=== PATIENT | male | born 1970 ===

== ENCOUNTER 2017-01-23 02:45 | Observation (INO) | payer MEDICAID ==
[2017-01-23 02:46] VITALS: BMI 25.0
[2017-01-23] MEDS ORDERED: Sodium Chloride 0.9% 1,000 ML IV STA (03:05)
--- NOTE | 2017-01-23 03:13 | ED PDOC ---
HPI: Abdomen Time Seen by Provider: 01/23/17 02:55 Chief Complaint (Nursing): Abdominal Pain Chief Complaint (Provider): Abdominal pain History Per: Patient History/Exam Limitations: no limitations Onset/Duration Of Symptoms: Days (few days), Worse Since (today) Current Symptoms Are (Timing): Still Present Associated Symptoms: Nausea, Vomiting, Constipation. denies: Fever, Chills, Chest Pain, Urinary Symptoms Additional Complaint(s): Jagdish Guardado is a 46 year old male, with no past medical history, who presents to the emergency department complaining of right sided abdominal pain and right flank pain associated with constipation and one episode of nausea and vomit onset for a few days. Patient reports pain worsen tonight which prompted his visit to the ED. Patient denies any fever, chills, chest pain, shortness of breath or urinary symptoms. No further medical complaints. PMD: None provided. Past Medical History Reviewed: Historical Data, Nursing Documentation, Vital Signs Vital Signs: Last Vital Signs Temp 98.0 F 01/23/17 02:52 Pulse 80 01/23/17 02:52 Resp 17 01/23/17 02:52 BP 127/76 01/23/17 02:52 Pulse Ox 100 01/23/17 03:21 - Medical History PMH: Depression, Seizures (Withdrawal) Denies: Diabetes, Hepatitis, HIV, HTN, Chronic Kidney Disease, Sexually Transmitted Disease - Family History Family History: States: Unknown Family Hx - Immunization History Hx Tetanus Toxoid Vaccination: No Hx Influenza Vaccination: No Hx Pneumococcal Vaccination: No - Home Medications Home Medications: Ambulatory Orders Medication Instructions Recorded Amoxicillin/Clavulanate Pota 1 tab PO BID #0 tab 01/30/15 [Augmentin 875 mg-125 mg] Nicotine 21 mg/24 hr [Nicoderm Cq] 1 patch TD DAILY #0 patch 01/30/15 Omeprazole [Prilosec] 40 mg PO DAILY #0 ecc 01/30/15 Prednisone 20 mg PO DAILY #0 tab 01/30/15 Thiamine [B-1] 100 mg PO DAILY #0 tab 01/30/15 Amoxicillin/Clavulanate [Augmentin 1 tab PO Q12 #0 tab 06/09/15 875 MG-125 MG Tab] Citalopram [celeXA] 10 mg PO DAILY #30 tab 06/09/15 Folic Acid 1 mg PO DAILY #0 tab 02/12/16 Thiamine [Vitamin B1 Tab] 100 mg PO DAILY #0 tab 06/09/15 - Allergies Allergies/Adverse Reactions: Allergies Allergy/AdvReac Type Severity Reaction Status Date / Time No Known Allergies Allergy Unverified 02/12/13 12:22 Review of Systems ROS Statement: Except As Marked, All Systems Reviewed And Found Negative Constitutional: Negative for: Fever, Chills Cardiovascular: Negative for: Chest Pain Respiratory: Negative for: Shortness of Breath Gastrointestinal: Positive for: Nausea, Vomiting, Abdominal Pain (right sided abdominal pain and right sided flank pain. ), Constipation Genitourinary Male: Negative for: Dysuria, Frequency Physical Exam - Reviewed Nursing Documentation Reviewed: Yes Vital Signs Reviewed: Yes - Physical Exam Appears: Positive for: Well, Non-toxic Head Exam: Positive for: ATRAUMATIC, NORMAL INSPECTION, NORMOCEPHALIC Skin: Positive for: Normal Color, Warm, Dry Eye Exam: Positive for: EOMI, Normal appearance, PERRL Neck: Positive for: Normal, Painless ROM, Supple Cardiovascular/Chest: Positive for: Regular Rate, Rhythm. Negative for: Murmur Respiratory: Positive for: Normal Breath Sounds. Negative for: Respiratory Distress Gastrointestinal/Abdominal: Positive for: Bowel Sounds, Soft, Tenderness (right mid quadrant abdominal tenderness & right flank tenderness). Negative for: Normal Exam Back: Positive for: Normal Inspection. Negative for: L CVA Tenderness, R CVA Tenderness Extremity: Positive for: Normal ROM. Negative for: Pedal Edema, Deformity Neurologic/Psych: Positive for: Alert, Oriented. Negative for: Motor/Sensory Deficits - Laboratory Results Result Diagrams: 01/23/17 03:15 01/23/17 03:15 - ECG O2 Sat by Pulse Oximetry: 100 (RA) Pulse Ox Interpretation: Normal Medical Decision Making Medical Decision Making: Initial Impression: constipation v. kidney stone v. appy v. mikaela Initial Plan: --Pelvis IV contrast [CT] --Comp Metabolic Panel --Urine dipstick --CBC w/ differential --Toradol 30 mg IVP --NS IV 1,000 ml @ 500mls/hr --Zofran Inj 4 mg IVP --Urinalysis --reevaluation Scribe Attestation: Documented by Yan Cabral, acting as a scribe for Russ North MD Provider Scribe Attestation: All medical record entries made by the Scribe were at my direction and personally dictated by me. I have reviewed the chart and agree that the record accurately reflects my personal performance of the history, physical exam, medical decision making, and the department course for this patient. I have also personally directed, reviewed, and agree with the discharge instructions and disposition. ED OBSERVATION Date of observation admission: 01/23/17 Time of observation admission: 03:00 - Observation admission statement Patient is being placed in observation because:: length of time to diagnosis - Goals of Observation Goals of observation are:: proper diagnosis - Progress Note Progress Note: 01/23/17 0330 Pt. resting comfortably after toradol 01/23/17 0430 Resting comfortably 01/23/[address] shows possible gall bladder distension, will get u/s at 7AM. States pain is starting to come back, will order 2 morphine. Will endorse case to Dr. Lundberg. Disposition - Clinical Impression Clinical Impression: Biliary colic - Patient ED Disposition Is Patient to be Admitted: Transfer of Care - Disposition Referrals: Nicola Niño MD [Primary Care Provider] - Disposition: Transfer of Care Disposition Time: 06:00 Condition: STABLE Forms: [employer] Connect (Greek) Patient Signed Over To: Randall Lundberg Handoff Comments: pending U/S
[2017-01-23 04:11] LABS: BASO # 0.1 K/uL (0.0-0.2); BASO % 0.7 % (0.0-2.0); EOS # 1.3 K/uL (0.0-0.7); EOS % 16.2 % (0.0-4.0); HEMATOCRIT 41.8 % (35.0-51.0); LYMPH # 2.3 K/uL (1.0-4.3); LYMPH % 28.4 % (20.0-40.0); MEAN CELL VOLUME 99.2 fl (80.0-94.0); MEAN CORPUSCULAR HEMOGLOBIN 33.5 pg (27.0-31.0); MEAN CORPUSCULAR HGB CONC 33.8 g/dL (33.0-37.0); MEAN PLATELET VOLUME 8.7 fl (7.2-11.7); MONO # 0.5 K/uL (0.0-0.8); MONO % 5.7 % (0.0-10.0); NRBC % 0.2 % (0.0-0.0); RED CELL DISTRIBUTION WIDTH 13.4 % (11.5-14.5); WHITE BLOOD COUNT 8.2 K/uL (4.8-10.8)
[2017-01-23 04:16] LABS: ALB/GLOB RATIO 1.1 (1.0-2.1); ALKALINE PHOSPHATASE 80 U/L (38-126); ALT/SGPT 114 U/L (21-72); AST/SGOT 119 U/L (17-59); BILIRUBIN,TOTAL 0.5 mg/dl (0.2-1.3); BLOOD UREA NITROGEN 10 mg/dl (9-20); CALCIUM 9.2 mg/dL (8.4-10.2); CARBON DIOXIDE 24 mmol/L (22-30); CHLORIDE 101 mmol/L (98-107); GFR AFRICAN-AMERICAN > 60; GLUCOSE,RANDOM 133 mg/dL (75-110); POTASSIUM 3.7 MMOL/L (3.6-5.0); SODIUM 141 mmol/l (132-148); TOTAL PROTEIN 7.9 G/DL (6.3-8.2)
[2017-01-23 04:17] LABS: RBC URINE 2 /hpf (0-3); URINE BACTERIA RARE (<OCC); URINE BILIRUBIN NEGATIVE (NEGATIVE); URINE BLOOD NEGATIVE (NEGATIVE); URINE COLOR YELLOW (YELLOW); URINE GLUCOSE (UA) NEG (Normal); URINE KETONE NEGATIVE (NEGATIVE); URINE LEUKOCYTE ESTERASE NEG Leu/uL (Negative); URINE PROTEIN NEGATIVE (NEGATIVE); URINE UROBILINOGEN 0.2-1.0 mg/dL (0.2-1.0); WBC URINE 1 /hpf (0-5)
[2017-01-23] MEDS ORDERED: Sodium Chloride 0.9% 50 ML IV ONE (04:20)
[2017-01-23] MEDS ORDERED: Iohexol 300 100 ML IJ ONE (04:20)
--- NOTE | 2017-01-23 05:16 | CT ---
EXAM: CT Abdomen and Pelvis With Intravenous Contrast CLINICAL HISTORY: 46 years old, male; Pain; Abdominal pain; Localized; Right; Additional info: Rlq, r flank pain, R/O appy/kidney stone TECHNIQUE: Axial computed tomography images of the abdomen and pelvis with intravenous contrast. All CT scans at this facility use one or more dose reduction techniques, viz.: automated exposure control; ma/kV adjustment per patient size (including targeted exams where dose is matched to indication; i.e. head); or iterative reconstruction technique. Coronal and sagittal reformatted images were created and reviewed. CONTRAST: 95 mL of [id number] administered intravenously. COMPARISON: CT - ABD PELVIS PO IV CONTRAST 01/20/2016 1:09:08 AM FINDINGS: Lower thorax: No acute findings. ABDOMEN: Liver: Unremarkable. No mass. Gallbladder and bile ducts: Distended. No calcified stones. No ductal dilation. Pancreas: Unremarkable. No mass. No ductal dilation. Spleen: Unremarkable. No splenomegaly. Adrenals: Unremarkable. No mass. Kidneys and ureters: Unremarkable. No solid mass. No hydronephrosis. Stomach and bowel: Unremarkable. No obstruction. No mucosal thickening. Appendix: A normal appendix is identified. PELVIS: Bladder: Unremarkable. No mass. Reproductive: Unremarkable as visualized. ABDOMEN and PELVIS: Intraperitoneal space: Unremarkable. No free air. No significant fluid collection. Bones/joints: No acute fracture. No dislocation. Soft tissues: Unremarkable. Vasculature: Unremarkable. No abdominal aortic aneurysm. Lymph nodes: Unremarkable. No enlarged lymph nodes. IMPRESSION: Distended gallbladder. Followup RIGHT upper quadrant ultrasound could be obtained if clinically indicated. No evidence of acute appendicitis. No obstructive uropathy.
--- NOTE | 2017-01-23 06:08 | ED PDOC ---
- Laboratory Results Result Diagrams: 01/23/17 03:15 01/23/17 03:15 - ECG O2 Sat by Pulse Oximetry: 100 (RA) Medical Decision Making Medical Decision Makin Patient was transferred [facility] by Dr. Nroth pending US results. Updates will be in ED-OBS ~ Scribe Attestation: Documented by Dwayne Aguilar, acting as a scribe for Dr. Randall Lundberg. Provider Scribe Attestation: All medical record entries made by the Scribe were at my direction and personally dictated by me. I have reviewed the chart and agree that the record accurately reflects my personal performance of the history, physical exam, medical decision making, and the department course for this patient. I have also personally directed, reviewed, and agree with the discharge instructions and disposition. Disposition - Clinical Impression Clinical Impression: Biliary colic, Elevated liver function tests - POA Present On Arrival: None - Disposition Disposition: Routine/Home Disposition Time: 03:00 Condition: STABLE ED OBSERVATION Date of observation admission: 01/23/17 Time of observation admission: 03:00 - Progress Note Progress Note: Time: 7:00 --Patient transferred to [facility] by Dr. North. Time: 8:15 US Galbladder IMPRESSION: No acute findings related to/accounting for the clinical presentation. No significant interval change compared to the prior examination(s) Time: 8:30 --Patient is resting comfortably with stable vitals Time: 10:00 --Patient is comfortably resting and vitals are stable. Time: 10:30 Patient informed of imaging findings as well as elevated LFT. Informed to follow up with GI and PCP; stable for discharge home.
[2017-01-23 08:08] VITALS: BP 113/71; PULSE 50; RESP 18; TEMP 97.9
--- NOTE | 2017-01-23 08:16 | US ---
HISTORY: distended GB on U/S COMPARISON: 01/19/2016 TECHNIQUE: Sonographic evaluation of the right upper quadrant of the abdomen. FINDINGS: LIVER: Measures 18.0 cm in length. Hepatopedal blood flow. Fatty infiltration manifest ultrasonographically as increased echogenicity of the liver parenchyma. No mass. No intrahepatic bile duct dilatation. GALLBLADDER: Unremarkable. No gallstones. The gallbladder is mildly distended. COMMON BILE DUCT: Measures 5.9 mm. No stones. No dilatation. PANCREAS: Obscured by overlying bowel gas. Non diagnostic assessment of OTHER FINDINGS: None . IMPRESSION: No acute findings related to/accounting for the clinical presentation. No significant interval change compared to the prior examination(s).
[2017-01-23 08:28] VITALS: O2SAT 100
== END 2017-01-23 10:36 | disposition home or self-care (01) ==
LOC: H.ER 02:45 → H.EROBSV 03:00
PROVIDERS: ADMIT Emergency Medicine; ATTEND Emergency Medicine
DX: K80.50 Calculus of bile duct without cholangitis or cholecystitis without obstruction (principal); R79.89 Other specified abnormal findings of blood chemistry; K59.00 Constipation, unspecified; F32.9 Major depressive disorder, single episode, unspecified
CPT/HCPCS: 74177; 76705; 80053; 81003; 82248; 85025; 96374; 96375; 99284; G0378; J1885; J2270; J2405; J7040; Q9967

== ENCOUNTER 2018-05-29 16:08 | Emergency (ER) | payer MEDICAID ==
[2018-05-29 16:08] VITALS: BMI 25.0
[2018-05-29 16:28] VITALS: RESP 18
--- NOTE | 2018-05-29 17:11 | ED PDOC ---
HPI: Skin/Bite Injury Time Seen by Provider: 05/29/18 16:31 Chief Complaint (Nursing): Abnormal Skin Integrity Chief Complaint (Provider): Pilondial Cyst History Per: Patient History/Exam Limitations: no limitations Onset/Duration Of Symptoms: Days (2-3) Current Symptoms Are (Timing): Better Quality Of Symptoms: Painful Additional Complaint(s): Pt presents to the ED complaining of a lump on his left inner cheek just proximate to the anus. On inspection, there is a superficial cyst that has ruptured; pt denies nausea vomiting diarhhea and fever. Past Medical History Reviewed: Historical Data, Nursing Documentation, Vital Signs Vital Signs: Last Vital Signs Temp 98.5 F 05/29/18 16:25 Pulse 84 05/29/18 16:25 Resp 18 05/29/18 16:25 BP 117/77 05/29/18 16:25 Pulse Ox 99 05/29/18 16:25 - Medical History PMH: Depression, Seizures (Withdrawal) Denies: Diabetes, Hepatitis, HIV, HTN, Chronic Kidney Disease, Sexually Transmitted Disease - Family History Family History: States: Unknown Family Hx - Immunization History Hx Tetanus Toxoid Vaccination: No Hx Influenza Vaccination: No Hx Pneumococcal Vaccination: No - Home Medications Home Medications: Ambulatory Orders Medication Instructions Recorded Sulfamethoxazole/Trimethoprim 1 tab PO BID #20 tab 05/29/18 [Bactrim DS 800 mg-160 mg] - Allergies Allergies/Adverse Reactions: Allergies Allergy/AdvReac Type Severity Reaction Status Date / Time No Known Allergies Allergy Unverified 05/29/18 16:25 Review of Systems ROS Statement: Except As Marked, All Systems Reviewed And Found Negative Skin: Positive for: Other (see HPI - pilondial cyst) Physical Exam - Reviewed Nursing Documentation Reviewed: Yes Vital Signs Reviewed: Yes - Physical Exam Appears: Positive for: Well, Non-toxic, No Acute Distress. Negative for: Uncomfortable Head Exam: Positive for: ATRAUMATIC, NORMAL INSPECTION Skin: Positive for: Normal Color (Pilondial cyst on left gluteal crack), Warm, Dry. Negative for: Diaphoresis, Pallor, Rash Neck: Positive for: Normal, Painless ROM, Supple. Negative for: Decreased ROM Cardiovascular/Chest: Positive for: Regular Rate, Rhythm Respiratory: Positive for: Normal Breath Sounds Pulses-Carotid (L): 2+ Pulses-Carotid (R): 2+ Pulses-Radial (L): 2+ Pulses-Radial (R): 2+ Back: Positive for: Normal Inspection. Negative for: L CVA Tenderness, R CVA Tenderness Rectal: Positive for: Tenderness (see note above) - ECG O2 Sat by Pulse Oximetry: 99 Medical Decision Making Medical Decision Making: abscess was manually released in the ED clearing sero-sanguinous fluid until flattened. Pt experineced immediate relief Disposition - Clinical Impression Clinical Impression: Pilonidal abscess - Patient ED Disposition Is Patient to be Admitted: No Doctor Will See Patient In The: Office Counseled Patient/Family Regarding: Diagnosis, Need For Followup, Rx Given - Disposition Referrals: [facility] [Outside] Disposition: Routine/Home Disposition Time: 17:19 Condition: STABLE Prescriptions: Sulfamethoxazole/Trimethoprim [Bactrim DS 800 mg-160 mg] 1 tab PO BID #20 tab Instructions: Pilonidal Cyst (DC), Pilonidal Cyst
[2018-05-29] MEDS ORDERED: Bacitracin 500 Units/gm Oint Foilpak UD ONE (18:10)
[2018-05-29 19:44] VITALS: BP 120/72; PULSE 79; TEMP 98.3; O2SAT 100
== END 2018-05-29 17:25 | disposition home or self-care (01) ==
LOC: H.ER 16:08
DX: L05.01 Pilonidal cyst with abscess (principal)

== ENCOUNTER 2018-07-15 15:43 | Emergency (ER) | payer MEDICAID ==
[2018-07-15 15:43] VITALS: BMI 25.0
[2018-07-15 16:04] VITALS: TEMP 97.6
[2018-07-15] MEDS ORDERED: Sodium Chloride 0.9% 1,000 ML IV SCH (17:15)
[2018-07-15] MEDS ORDERED: Iohexol 240 (50 ml) PO STA (17:18)
[2018-07-15] MEDS ORDERED: Sodium Chloride 0.9% 1,000 ML IV STA (17:47)
[2018-07-15] MEDS ORDERED: Iohexol 240 (50 ml) ONE (17:52)
[2018-07-15 18:04] LABS: INR 1.8; PROTHROMBIN TIME 20.2 Seconds (9.8-13.1)
--- NOTE | 2018-07-15 18:07 | RAD ---
HISTORY: chest pain COMPARISON: Chest x-ray performed 01/19/16 TECHNIQUE: Chest PA and lateral FINDINGS: LUNGS: No focal consolidation. Please note that chest x-ray has limited sensitivity for the detection of pulmonary masses. PLEURA: No significant pleural effusion identified. No definite pneumothorax . CARDIOVASCULAR: Heart size appears within normal limits. Atherosclerotic calcifications of the aorta. OSSEOUS STRUCTURES: Degenerative changes of the spine including confluent anterior osteophytes. VISUALIZED UPPER ABDOMEN: Unremarkable. OTHER FINDINGS: None. IMPRESSION: No acute findings identified.
[2018-07-15 18:28] LABS: BASO % 0.7 % (0.0-2.0); EOS # 0.8 K/uL (0.0-0.7); EOS % 13.4 % (0.0-4.0); HEMOGLOBIN 12.4 g/dL (12.0-18.0); LYMPH # 3.1 K/uL (1.0-4.3); LYMPH % 49.6 % (20.0-40.0); MEAN CELL VOLUME 102.5 fl (80.0-94.0); MEAN CORPUSCULAR HEMOGLOBIN 34.8 pg (27.0-31.0); MEAN PLATELET VOLUME 9.3 fl (7.2-11.7); MONO # 0.4 K/uL (0.0-0.8); NEUT # 1.9 K/uL (1.8-7.0); NEUT % 30.3 % (50.0-75.0); NRBC % 0.2 % (0.0-0.0); RBC 3.56 Mil/uL (4.40-5.90); RED CELL DISTRIBUTION WIDTH 13.8 % (11.5-14.5); WHITE BLOOD COUNT 6.2 K/uL (4.8-10.8)
[2018-07-15] MEDS ORDERED: Iohexol 300 100 ML IJ ONE (19:47)
[2018-07-15] MEDS ORDERED: Sodium Chloride 0.9% 50 ML IV ONE (19:47)
[2018-07-15 20:11] LABS: ALB/GLOB RATIO 0.9 (1.0-2.1); ALBUMIN 3.8 g/dL (3.5-5.0); ALT/SGPT 119 U/L (21-72); AST/SGOT 159 U/L (17-59); BLOOD UREA NITROGEN 6 mg/dl (9-20); CALCIUM 8.8 mg/dL (8.4-10.2); GFR NON-AFRICAN AMERICAN > 60; LIPASE 416 U/L (23-300)
--- NOTE | 2018-07-15 20:20 | ED PDOC ---
HPI: Abdomen Time Seen by Provider: 07/15/18 17:30 Chief Complaint (Nursing): Abdominal Pain Chief Complaint (Provider): ABD PAIN/DIARRHEA History Per: Patient History/Exam Limitations: no limitations Onset/Duration Of Symptoms: Days Outside of [place] travel?: No Current Symptoms Are (Timing): Still Present Severity: Severe Pain Scale Rating Of: 7 Location Of Pain/Discomfort: RLQ, LLQ Quality Of Discomfort: "Pain" Associated Symptoms: Nausea, Vomiting, Diarrhea (BLOODY ), Chest Pain (INTERMITTENT FOR 2 WEEKS ). denies: Fever Exacerbating Factors: Food Alleviating Factors: None Last Bowel Movement: Today Additional History Per: Patient Additional Complaint(s): 47 Y/O MALE WITH HISTORY OF ALCOHOL ABUSE AND SEIZURE DISORDER, PRESENTS TO THE ED C/O ABD PAIN, NAUSEA/VOMITING, BLOOD DIARRHEA FOR TWO WEEKS. HE STATES HE IS UNABLE TO EAT AND DRINK DUE TO PAIN AND CONSTANT VOMITING. HE ALSO STATES HE HAS BEEN HAVING INTERMITTENT MID STERNAL CHEST PAIN BUT DENIES SOB. ADDITIONALLY PT REPORTS HE ALSO HAS BEEN DRINKING ALCOHOL FOR TWO WEEKS. HE STATES HIS LAST DRINK WAS LASTNIGHT UNKNOWN TIME. DENIES FEVER, SOB, RECENT FALLS, DRUG USE. Past Medical History Reviewed: Historical Data, Nursing Documentation, Vital Signs Vital Signs: Last Vital Signs Temp 97.6 F 07/15/18 16:02 Pulse 87 07/15/18 16:02 Resp 16 07/15/18 16:02 BP 119/78 07/15/18 16:02 Pulse Ox 96 07/15/18 16:02 - Medical History PMH: Depression, Seizures (Withdrawal) Denies: Diabetes, Hepatitis, HIV, HTN, Chronic Kidney Disease, Sexually Transmitted Disease - Surgical History Surgical History: No Surg Hx - Family History Family History: States: Unknown Family Hx - Social History Alcohol: > 2 Drinks/Day Drugs: Denies - Immunization History Hx Tetanus Toxoid Vaccination: No Hx Influenza Vaccination: No Hx Pneumococcal Vaccination: No - Home Medications Home Medications: Ambulatory Orders Medication Instructions Recorded Sulfamethoxazole/Trimethoprim 1 tab PO BID #20 tab 05/29/18 [Bactrim DS 800 mg-160 mg] - Allergies Allergies/Adverse Reactions: Allergies Allergy/AdvReac Type Severity Reaction Status Date / Time No Known Allergies Allergy Unverified 07/15/18 16:04 Review of Systems ROS Statement: Except As Marked, All Systems Reviewed And Found Negative Constitutional: Positive for: Weakness, Malaise. Negative for: Fever Eyes: Negative for: Vision Change, Conjunctivae Inflammation, Eyelid Inflammation ENT: Negative for: Ear Pain, Throat Swelling Cardiovascular: Positive for: Chest Pain (DENIES AT THIS TIME. + IN THE LAST TWO WEEKS ) Respiratory: Negative for: Cough, Shortness of Breath, SOB with Exertion Gastrointestinal: Positive for: Nausea, Vomiting, Abdominal Pain, Diarrhea (BLOODY ) Genitourinary Male: Negative for: Dysuria Musculoskeletal: Negative for: Neck Pain Skin: Negative for: Rash Neurological: Positive for: Weakness. Negative for: Dizziness Physical Exam - Reviewed Nursing Documentation Reviewed: Yes Vital Signs Reviewed: Yes - Physical Exam Appears: Positive for: No Acute Distress, Uncomfortable Head Exam: Positive for: ATRAUMATIC, NORMAL INSPECTION, NORMOCEPHALIC Skin: Positive for: Normal Color, Warm Eye Exam: Positive for: Normal appearance, EOMI, PERRL ENT: Positive for: Normal ENT Inspection Neck: Positive for: Normal Cardiovascular/Chest: Positive for: Regular Rate, Rhythm Respiratory: Positive for: Normal Breath Sounds Pulses-Radial (L): 2+ Pulses-Radial (R): 2+ Gastrointestinal/Abdominal: Positive for: Bowel Sounds (HYPERACTIVE ), Soft, Tenderness (RLQ,LLQ). Negative for: Distended, Guarding Back: Positive for: Normal Inspection. Negative for: L CVA Tenderness, R CVA Tenderness Extremity: Positive for: Normal ROM, Capillary Refill (<2 SECS UPPER AND LOWER BILAT ). Negative for: Calf Tenderness Neurological/Psych: Positive for: Awake, Alert, Normal Tone, Oriented (ALTERED SPEECH), Gait (STEADY ), Motor/Sensory Deficits (NEURO EXAM NORMAL ), hat brim curler II-XII (INTACT), Facial Droop (NEG ), Other (POSS ALCOHOL INGESTION TODAY, ALCOHOL SMELLED ON BREATH) - Laboratory Results Result Diagrams: 07/15/18 18:18 07/15/18 19:55 Lab Results: PT 20.2 Seconds (9.8-13.1) H 07/15/18 17:40 INR 1.8 07/15/18 17:40 APTT 44.0 Seconds (25.6-37.1) H 07/15/18 17:40 Total Bilirubin 0.7 mg/dl (0.2-1.3) 03/20/19 19:55 AST 159 U/L (17-59) H D 07/15/18 19:55 ALT 119 U/L (21-72) H 07/15/18 19:55 Alkaline Phosphatase 91 U/L (38-126) 07/15/18 19:55 Total Protein 7.8 G/DL (6.3-8.2) 07/15/18 19:55 Albumin 3.8 g/dL (3.5-5.0) 07/15/18 19:55 Globulin 4.1 gm/dL (2.2-3.9) H 07/15/18 19:55 Albumin/Globulin Ratio 0.9 (1.0-2.1) L 07/15/18 19:55 Lipase 416 U/L (23-300) H 07/15/18 19:55 - ECG O2 Sat by Pulse Oximetry: 96 Pulse Ox Interpretation: Normal - Progress ED Course And Treament: CBC CMP LIPASE TROP ALCOHOL LEVEL UA CT SCAN ABD/PELVIC CXR 0.9 NS 1L ZOFRAN 4MG IV TORADOL 30MG IV 2000: PT ENDORSED TO ANTHONY LOPEZ PA-C, TO FOLLOW UP ON LABS AND CT REPORT. CASE DISCUSSED WITH DR. PETERSON. Disposition - Clinical Impression Clinical Impression: Alcohol abuse - Patient ED Disposition Is Patient to be Admitted: No - Disposition Disposition: Transfer of Care Disposition Time: 20:00 Condition: STABLE Patient Signed Over To: Anthony Lopez Handoff Comments: FOLLOW UP ON LABS AND CT RESULTS - POA Present On Arrival: None
[2018-07-15 20:23] LABS: SQUAMOUS EPITHIAL < 1 /hpf (0-5); URINE BILIRUBIN NEGATIVE (NEGATIVE); URINE BLOOD NEGATIVE (NEGATIVE); URINE CLARITY SLIGHTY-CLOUDY (Clear); URINE COLOR STRAW (YELLOW); URINE GLUCOSE (UA) NEG (NEGATIVE); URINE LEUKOCYTE ESTERASE NEG Leu/uL (Negative); URINE PROTEIN NEGATIVE (NEGATIVE); URINE UROBILINOGEN 0.2-1.0 mg/dL (0.2-1.0)
--- NOTE | 2018-07-15 20:25 | ED PDOC ---
- Laboratory Results Result Diagrams: 07/15/18 18:18 07/15/18 19:55 Lab Results: PT 20.2 Seconds (9.8-13.1) H 07/15/18 17:40 INR 1.8 07/15/18 17:40 APTT 44.0 Seconds (25.6-37.1) H 07/15/18 17:40 Troponin I < 0.0120 ng/mL (0.00-0.120) 07/15/18 19:55 Total Bilirubin 0.7 mg/dl (0.2-1.3) 07/15/18 19:55 AST 159 U/L (17-59) H D 07/15/18 19:55 ALT 119 U/L (21-72) H 07/15/18 19:55 Alkaline Phosphatase 91 U/L (38-126) 07/15/18 19:55 Total Protein 7.8 G/DL (6.3-8.2) 07/15/18 19:55 Albumin 3.8 g/dL (3.5-5.0) 07/15/18 19:55 Globulin 4.1 gm/dL (2.2-3.9) H 07/15/18 19:55 Albumin/Globulin Ratio 0.9 (1.0-2.1) L 07/15/18 19:55 Lipase 416 U/L (23-300) H 07/15/18 19:55 Urine Color Straw (YELLOW) 07/15/18 19:49 Urine Clarity Slighty-cloudy (Clear) 07/15/18 19:49 Urine pH 7.0 (5.0-8.0) 07/15/18 19:49 Ur Specific Jasper < 1.005 (1.003-1.030) 07/15/18 19:49 Urine Protein Negative mg/dL (NEGATIVE) 07/15/18 19:49 Urine Glucose (UA) Neg mg/dL (NEGATIVE) 07/15/18 19:49 Urine Ketones Negative mg/dL (NEGATIVE) 07/15/18 19:49 Urine Blood Negative (NEGATIVE) 07/15/18 19:49 Urine Nitrate Negative (NEGATIVE) 07/15/18 19:49 Urine Bilirubin Negative (NEGATIVE) 07/15/18 19:49 Urine Urobilinogen 0.2-1.0 mg/dL (0.2-1.0) 07/15/18 19:49 Ur Leukocyte Esterase Neg Lucia/uL (Negative) 07/15/18 19:49 Urine RBC (Auto) 1 /hpf (0-3) 07/15/18 19:49 Urine Microscopic WBC < 1 /hpf (0-5) 07/15/18 19:49 Ur Squamous Epith Cells < 1 /hpf (0-5) 07/15/18 19:49 - ECG O2 Sat by Pulse Oximetry: 96 Medical Decision Making Medical Decision Making: Patient care assumed from Sudhir Montague JELLY MAKER at 1950 Re evaluation indicates pt is stable EXAM: CT Abdomen and Pelvis with IV contrast CLINICAL HISTORY: Bloody Diarrhea TECHNIQUE: Axial computed tomography images of the abdomen and pelvis with oral and intravenous contrast. 506.65 mGy-cm CONTRAST: With; [id number] 95ML COMPARISON: None provided. FINDINGS: LUNG BASES: The lung bases appear clear. No pleural effusions are seen. LIVER: Unremarkable. GALLBLADDER AND BILE DUCTS: The gallbladder appears within normal limits. No radioopaque gallstones are seen. No biliary ductal dilatation is evident. PANCREAS: Unremarkable. SPLEEN: Unremarkable. ADRENAL GLANDS: Unremarkable. KIDNEYS, URETERS, AND BLADDER: The kidneys appear within normal limits. There is no hydronephrosis or hydr oureter. No urinary calculi are seen. STOMACH AND BOWEL: Thick walled fluid filled cecum and ascending colon is noted compatible with colitis. Infectious and inflammatory etiologies are considered. Consider follow up with colonoscopy. APPENDIX: No evidence of acute appendicitis on CT examination. PERITONEUM: No free fluid. No free air. LYMPH NODES: No lymphadenopathy is evident. REPRODUCTIVE: Unremarkable as visualized. VASCULATURE: No evidence of abdominal aortic aneurysm. BONES: No aggressive appearing osseous lesion. No acute osseous pathology evident. IMPRESSION: Right colitis. Infectious and inflammatory etiologies are considered. Consider follow up with colonoscopy. Discussed thrombocytopenia (plat = 35) with Dr Mina Niño who indicated that there is no reason in his opinion to admit the patient; the pateitn will follow up with Dr Niño as well as GI specialist for colonoscopy. Pt will be treated conservatively and given abx of cipro. The patient is stable for discharge Disposition Discussed With : iMna Niño Doctor Will See Patient In The: Office Counseled Patient/Family Regarding: Diagnosis, Need For Followup, Rx Given - Clinical Impression Clinical Impression: Alcohol abuse, Colitis, Thrombocytopenia concurrent with and due to alcoholism - POA Present On Arrival: None - Disposition Referrals: Ermias Salazar MD, PhD [Staff Provider] - Mina Niño MD [Staff Provider] - Disposition: Routine/Home Disposition Time: 22:29 Condition: STABLE Prescriptions: Ciprofloxacin [Cipro] 1 tab PO BID #14 tab Instructions: Colitis, Colitis (DC), Bleeding Precautions, Effects of Alcohol on Your Health, Essential Thrombocythemia Forms: [employer] (Kinyarwanda)
[2018-07-15] MEDS ORDERED: Sodium Chloride 0.9% 1,000 ML IV ONE (20:38)
[2018-07-15 22:37] VITALS: BP 122/80; PULSE 84; RESP 18; O2SAT 99
--- NOTE | 2018-07-16 10:36 | CARD ---
APPROVED REPORT Date of service: 07/15/2018 EKG Measurement Heart [id number] <Conclusion> Normal sinus rhythm Normal ECG
--- NOTE | 2018-07-16 12:45 | CT ---
Date of service: 07/15/2018 PROCEDURE: CT Abdomen and Pelvis with contrast HISTORY: bloody diarrhea COMPARISON: None. TECHNIQUE: Contrast dose: Radiation dose: Total exam DLP = 506.65 mGy-cm. This CT exam was performed using one or more of the following dose reduction techniques: Automated exposure control, adjustment of the mA and/or kV according to patient size, and/or use of iterative reconstruction technique. FINDINGS: LOWER THORAX: Unremarkable. LIVER: Unremarkable. No gross lesion or ductal dilatation. GALLBLADDER AND BILE DUCTS: Unremarkable. PANCREAS: Unremarkable. No gross lesion or ductal dilatation. SPLEEN: Unremarkable. ADRENALS: Unremarkable. No mass. KIDNEYS AND URETERS: Unremarkable. No hydronephrosis. No solid mass. VASCULATURE: Unremarkable. No aortic aneurysm. No aortic atherosclerotic calcification or mural plaque present. BOWEL: Unremarkable. No obstruction. No gross mural thickening. APPENDIX: Normal appendix. PERITONEUM: Unremarkable. No free fluid. No free air. LYMPH NODES: Unremarkable. No enlarged lymph nodes. BLADDER: Unremarkable. REPRODUCTIVE: Unremarkable. BONES: No acute fracture. OTHER FINDINGS: None. IMPRESSION: Unremarkable contrast enhanced CT of the abdomen and pelvis.
== END 2018-07-15 22:31 | disposition home or self-care (01) ==
LOC: H.ER 15:43
DX: F10.10 Alcohol abuse, uncomplicated (principal); Y90.8 Blood alcohol level of 240 mg/100 ml or more; Z86.59 Personal history of other mental and behavioral disorders
CPT/HCPCS: 71046; 74177; 80053; 80320; 81003; 83690; 84484; 85025; 85610; 85730; 93005; 96361; 96374; 96375; 99283; J1885; J2405; J7030; Q9966; Q9967